=== PATIENT | male | born 1995 | race Caucasian/White ===

== ENCOUNTER 2018-06-27 11:53 | Emergency (ER) | payer SELFPAY ==
[~2018-06-27] VITALS: Ht 144.8 cm; Wt 58.0 kg
== END 2018-06-27 12:15 | disposition left against medical advice (07) ==
LOC: ED 12:00
DX: Z48.02 Encounter for removal of sutures (principal); Z53.21 Procedure and treatment not carried out due to patient leaving prior to being seen by health care provider